=== PATIENT | female | born 1965 | race Caucasian/White ===

== ENCOUNTER 2020-05-11 17:09 | Emergency (ER) | payer MEDICARE ==
[~2020-05-11] VITALS: Ht 160 cm; Wt 104.5 kg
[2020-05-11 17:40] LABS: EOS # 0.2 (0.04-0.40); EOS % 1.6 % (1.0-5.0); HEMOGLOBIN 12.8 g/dL (12.5-16.0); LYMPH# 3.3 (1.50-4.00); MEAN CELL VOLUME 87 fl (78-100); MEAN CORPUSCULAR HEMOGLOBIN 29 pg (27-31); MEAN CORPUSCULAR HGB CONC 34 g/dL (33-37); MEAN PLATELET VOLUME 10.1 fl (7.4-10.4); MONO # 0.6 (0.20-0.80); NEU # 7.1 (1.40-6.50); PLATELET COUNT 268 K/mm3 (130-400); RED BLOOD COUNT 4.38 M/mm3 (4.10-5.30); RED CELL DISTRIBUTION WIDTH 13.3 % (11.5-14.5); WHITE BLOOD COUNT 11.1 K/mm3 (4.8-10.8)
[2020-05-11 17:49] LABS: ALBUMIN 3.8 g/dL (3.5-5.0); SODIUM 138 mmol/L (136-145)
[2020-05-11 17:50] LABS: CALCIUM 9.1 mg/dL (8.3-10.5)
[2020-05-11 17:51] LABS: GLUCOSE 204 mg/dL (65-105); POTASSIUM 2.6 mmol/L (3.5-5.1); TOTAL PROTEIN 6.5 g/dL (6.4-8.3)
[2020-05-11 17:52] LABS: CARBON DIOXIDE 18 mmol/L (22-29); D-DIMER 0.11 mg/L FEU (0.15-0.50)
[2020-05-11 17:53] LABS: TOTAL BILIRUBIN 0.4 mg/dL (0.2-1.2)
[2020-05-11 17:57] LABS: AST-SGOT 11 U/L (5-34)
[2020-05-11 17:58] LABS: ALT/SGPT 10 U/L (0-55)
[2020-05-11 18:04] LABS: TROPONIN-I < 0.03 ng/mL (<0.030)
[2020-05-11] MEDS ORDERED: POTASSIUM CHLO20 ME4 PO (18:24)
[2020-05-11 18:36] VITALS: BP 136/64
== END 2020-05-11 18:36 | disposition left against medical advice (07) ==
LOC: ED 17:09
PROVIDERS: Family Medicine
DX: R07.89 Other chest pain (principal); E87.6 Hypokalemia; E11.9 Type 2 diabetes mellitus without complications; K21.9 Gastro-esophageal reflux disease without esophagitis; I10 Essential (primary) hypertension; F17.210 Nicotine dependence, cigarettes, uncomplicated

== ENCOUNTER → 2020-05-18 | Outpatient (CLI) | payer MEDICARE ==
[2020-05-11 18:36] VITALS: BP 136/64
[~2020-05-18] MED LIST: POTASSIUM CHLO20 ME4 PO
[2020-05-18 15:33] LABS: POTASSIUM 4.2 mmol/L (3.5-5.1)
[2020-05-18 15:35] LABS: CALCIUM 9.5 mg/dL (8.3-10.5)
== END ==
LOC: LAB 15:11
PROVIDERS: Family Medicine
DX: E87.6 Hypokalemia (principal)

== ENCOUNTER → 2020-09-18 | Outpatient (CLI) | payer MEDICAID ==
[2020-09-18 13:22] LABS: EOS # 0.2 (0.04-0.40); EOS % 1.8 % (1.0-5.0); HEMATOCRIT 39.1 % (37.0-47.0); LYMPH# 2.9 (1.50-4.00); MEAN CELL VOLUME 90 fl (78-100); MEAN CORPUSCULAR HEMOGLOBIN 30 pg (27-31); MEAN CORPUSCULAR HGB CONC 33 g/dL (33-37); MEAN PLATELET VOLUME 9.9 fl (7.4-10.4); MONO # 0.6 (0.20-0.80); NEU # 5.8 (1.40-6.50); PLATELET COUNT 304 K/mm3 (130-400); RED BLOOD COUNT 4.36 M/mm3 (4.10-5.30); RED CELL DISTRIBUTION WIDTH 12.9 % (11.5-14.5); WHITE BLOOD COUNT 9.5 K/mm3 (4.8-10.8)
[2020-09-18 13:30] LABS: POTASSIUM 3.3 mmol/L (3.5-5.1)
[2020-09-18 13:31] LABS: CALCIUM 9.4 mg/dL (8.3-10.5)
[2020-09-18 13:33] LABS: TOTAL PROTEIN 6.8 g/dL (6.4-8.3)
[2020-09-18 13:35] LABS: TOTAL BILIRUBIN 0.3 mg/dL (0.2-1.2)
== END ==
LOC: LAB 10:45
PROVIDERS: Physician Assistant
DX: Z00.00 Encounter for general adult medical examination without abnormal findings (principal); Z13.29 Encounter for screening for other suspected endocrine disorder; E11.9 Type 2 diabetes mellitus without complications; R10.9 Unspecified abdominal pain

== ENCOUNTER 2020-12-31 10:38 | Emergency (ER) | payer MEDICARE, MEDICAID ==
[2020-12-31 11:10] LABS: EOS # 0.2 (0.04-0.40); EOS % 2.1 % (1.0-5.0); HEMATOCRIT 40.5 % (37.0-47.0); HEMOGLOBIN 13.1 g/dL (12.5-16.0); LYMPH# 2.5 (1.50-4.00); MEAN CELL VOLUME 90 fl (78-100); MEAN CORPUSCULAR HEMOGLOBIN 29 pg (27-31); MEAN CORPUSCULAR HGB CONC 32 g/dL (33-37); MEAN PLATELET VOLUME 10.1 fl (7.4-10.4); MONO # 0.6 (0.20-0.80); NEU # 5.1 (1.40-6.50); PLATELET COUNT 304 K/mm3 (130-400); RED CELL DISTRIBUTION WIDTH 12.8 % (11.5-14.5); WHITE BLOOD COUNT 8.4 K/mm3 (4.8-10.8)
[2020-12-31] MEDS ORDERED: ZESTRIL5 M1 PO (11:20)
[2020-12-31] MEDS ORDERED: OMEPRAZOLE40 MG PO (11:20)
[2020-12-31] MEDS ORDERED: EMGALITY120 MG/1 M SQ (11:21)
[2020-12-31] MEDS ORDERED: INVEGA SUSTENN156 MG IM (11:21)
[2020-12-31 11:22] LABS: ALBUMIN 4.1 g/dL (3.5-5.0)
[2020-12-31] MEDS ORDERED: LAMOTRIGINE200 MG PO (11:22)
[2020-12-31] MEDS ORDERED: LORAZEPAM1 M1 PO (11:22)
[2020-12-31] MEDS ORDERED: ZOLPIDEM TART10 MG PO (11:22)
[2020-12-31 11:23] LABS: POTASSIUM 3.9 mmol/L (3.5-5.1)
[2020-12-31] MEDS ORDERED: TRAMADOL 50 MG TAB PO (11:23)
[2020-12-31] MEDS ORDERED: DESYREL 100MG100 MG PO (11:23)
[2020-12-31 11:24] LABS: CALCIUM 9.2 mg/dL (8.3-10.5)
[2020-12-31 11:27] LABS: TOTAL BILIRUBIN 0.5 mg/dL (0.2-1.2)
[2020-12-31 11:31] LABS: PH-URINE 6.5 (5.0 - 8.0); URINE APPEARANCE CLEAR; URINE BILIRUBIN NEGATIVE (NEGATIVE); URINE BLOOD TRACE (NEGATIVE); URINE COLOR YELLOW; URINE GLUCOSE NEGATIVE (NEGATIVE); URINE KETONE NEGATIVE (NEGATIVE); URINE LEUKOCYTE ESTERASE NEGATIVE (NEGATIVE); URINE NITRATE NEGATIVE (NEGATIVE); URINE PROTEIN(semi-quant) NEGATIVE (NEGATIVE); URINE UROBILINOGEN NORMAL (NORMAL)
[2020-12-31] MEDS ORDERED: CYCLOBENZAPRINE10 M1 PO (12:50)
[2020-12-31 13:06] VITALS: BP 132/72
== END 2020-12-31 13:09 | disposition home or self-care (01) ==
LOC: ED 10:38
PROVIDERS: Nurse Practitioner
DX: R10.9 Unspecified abdominal pain (principal); F31.9 Bipolar disorder, unspecified; F43.10 Post-traumatic stress disorder, unspecified; F17.200 Nicotine dependence, unspecified, uncomplicated; Z84.1 Family history of disorders of kidney and ureter; Z88.6 Allergy status to analgesic agent; Z88.8 Allergy status to other drugs, medicaments and biological substances
CPT/HCPCS: J1885; J3010; J7030

== ENCOUNTER → 2021-01-08 | Outpatient (CLI) | payer MEDICARE, MEDICAID ==
[2020-12-31 13:06] VITALS: BP 132/72
[~2021-01-08] MED LIST changes: +CYCLOBENZAPRINE10 M1 PO; +DESYREL 100MG100 MG PO; +EMGALITY120 MG/1 M SQ; +INVEGA SUSTENN156 MG IM; +INVEGA TRI546 MG/1.7 IM; +LAMOTRIGINE200 MG PO; +LISINOPRIL10 MG PO; +LORAZEPAM1 M1 PO; +OMEPRAZOLE40 MG PO; +POTASSIUM CHLO10 ME6 PO; +PROAIR HFA0.09 MG/AC IH; +TRAMADOL 50 MG TAB PO; +WELLBUTRIN SR100 M3 PO; +ZESTRIL5 M1 PO; +ZOLPIDEM TART10 MG PO
[2021-01-08 17:00] LABS: URINE APPEARANCE CLEAR; URINE BILIRUBIN NEGATIVE (NEGATIVE); URINE BLOOD 50 ery/uL (NEGATIVE); URINE COLOR YELLOW; URINE GLUCOSE NEGATIVE (NEGATIVE); URINE KETONE NEGATIVE (NEGATIVE); URINE LEUKOCYTE ESTERASE TRACE (NEGATIVE); URINE NITRATE NEGATIVE (NEGATIVE); URINE PROTEIN(semi-quant) NEGATIVE (NEGATIVE); URINE UROBILINOGEN NORMAL (NORMAL)
== END ==
LOC: LAB 15:58
PROVIDERS: Physician Assistant
DX: R10.9 Unspecified abdominal pain (principal)

== ENCOUNTER → 2021-02-21 | Outpatient (CLI) | payer MEDICARE, MEDICAID | LOC: RAD 16:08 | DX: M51.26 Other intervertebral disc displacement, lumbar region (principal) ==

== ENCOUNTER 2021-02-28 13:55 | Outpatient (RCR) | payer MEDICARE, MEDICAID ==
[~2021-02-28 13:55] MED LIST changes: -INVEGA TRI546 MG/1.7 IM; -LISINOPRIL10 MG PO; -POTASSIUM CHLO10 ME6 PO; -PROAIR HFA0.09 MG/AC IH; -WELLBUTRIN SR100 M3 PO
[2021-05-19] MEDS ORDERED: WELLBUTRIN SR100 M3 PO (14:34)
[2021-05-19] MEDS ORDERED: LISINOPRIL10 MG PO (14:35)
== END 2021-05-29 ==
LOC: PT
DX: M54.16 Radiculopathy, lumbar region (principal)

== ENCOUNTER 2021-05-19 14:24 | Emergency (ER) | payer MEDICARE, MEDICAID ==
[2021-05-19] MEDS ORDERED: WELLBUTRIN SR100 M3 PO (14:34)
[2021-05-19] MEDS ORDERED: LISINOPRIL10 MG PO (14:35)
[2021-05-19 15:34] VITALS: BP 148/93
== END 2021-05-19 15:32 | disposition home or self-care (01) ==
LOC: ED 14:24
DX: G43.909 Migraine, unspecified, not intractable, without status migrainosus (principal); Z88.6 Allergy status to analgesic agent
CPT/HCPCS: J1885

== ENCOUNTER 2021-06-09 14:54 | Emergency (ER) | payer MEDICARE, MEDICAID ==
[~2021-06-09] VITALS: Ht 162.6 cm; Wt 110.2 kg
[~2021-06-09 14:54] MED LIST changes: +LISINOPRIL10 MG PO; +WELLBUTRIN SR100 M3 PO
[2021-06-09] MEDS ORDERED: INVEGA TRI546 MG/1.7 IM (15:19)
[2021-06-09 15:52] LABS: URINE APPEARANCE CLEAR; URINE COLOR YELLOW; URINE PROTEIN(semi-quant) TRACE mg/dL (NEGATIVE)
[2021-06-09 15:53] LABS: URINE BILIRUBIN NEGATIVE (NEGATIVE); URINE BLOOD NEGATIVE (NEGATIVE); URINE KETONE NEGATIVE (NEGATIVE); URINE LEUKOCYTE ESTERASE NEGATIVE (NEGATIVE); URINE NITRATE NEGATIVE (NEGATIVE); URINE UROBILINOGEN NORMAL (NORMAL)
[2021-06-09 15:55] LABS: HEMATOCRIT 38.8 % (37.0-47.0); HEMOGLOBIN 12.8 g/dL (12.5-16.0); MEAN CELL VOLUME 89 fl (78-100); MEAN CORPUSCULAR HEMOGLOBIN 29 pg (27-31); MEAN CORPUSCULAR HGB CONC 33 g/dL (33-37); MEAN PLATELET VOLUME 9.7 fl (7.4-10.4); PLATELET COUNT 297 K/mm3 (130-400); RED BLOOD COUNT 4.41 M/mm3 (4.10-5.30); RED CELL DISTRIBUTION WIDTH 12.7 % (11.5-14.5); WHITE BLOOD COUNT 11.5 K/mm3 (4.8-10.8)
[2021-06-09 15:56] LABS: BASO # 0.02 (0.02-0.10); EOS # 0.18 (0.04-0.40); EOS % 1.6 % (1.0-5.0); LYMPH# 2.46 (1.50-4.00); MONO # 0.69 (0.20-0.80); NEU # 8.16 (1.40-6.50)
[2021-06-09 16:01] LABS: CALCIUM 10.3 mg/dL (8.3-10.5); CARBON DIOXIDE 23 mmol/L (22-29); GLUCOSE 230 mg/dL (65-105); POTASSIUM 3.4 mmol/L (3.5-5.1); SODIUM 137 mmol/L (136-145)
[2021-06-09 16:26] LABS: TROPONIN-I < 0.03 ng/mL (<0.030)
[2021-06-09] MEDS ORDERED: PROAIR HFA0.09 MG/AC IH (17:16)
[2021-06-09] MEDS ORDERED: POTASSIUM CHLO10 ME6 PO (17:16)
[2021-06-09 17:30] VITALS: BP 137/75
== END 2021-06-09 17:30 | disposition home or self-care (01) ==
LOC: ED 14:54
PROVIDERS: Family Medicine
DX: R05 Cough (principal); E87.6 Hypokalemia; R53.81 Other malaise; R53.83 Other fatigue; G43.909 Migraine, unspecified, not intractable, without status migrainosus; I10 Essential (primary) hypertension; F31.9 Bipolar disorder, unspecified; F17.200 Nicotine dependence, unspecified, uncomplicated; Z88.6 Allergy status to analgesic agent; Z79.899 Other long term (current) drug therapy; Z20.822 Contact with and (suspected) exposure to COVID-19

== ENCOUNTER → 2021-06-13 | Outpatient (CLI) | payer MEDICARE, MEDICAID ==
[~2021-06-13] MED LIST changes: +INVEGA TRI546 MG/1.7 IM; +POTASSIUM CHLO10 ME6 PO; +PROAIR HFA0.09 MG/AC IH
[2021-06-13 10:20] LABS: ALBUMIN 3.9 g/dL (3.5-5.0)
[2021-06-13 10:21] LABS: POTASSIUM 4.2 mmol/L (3.5-5.1)
[2021-06-13 10:22] LABS: CALCIUM 9.5 mg/dL (8.3-10.5)
[2021-06-13 10:25] LABS: TOTAL BILIRUBIN 0.3 mg/dL (0.2-1.2)
== END ==
LOC: LAB 09:53
PROVIDERS: Physician Assistant
DX: R73.9 Hyperglycemia, unspecified (principal); E87.6 Hypokalemia

== ENCOUNTER → 2021-09-16 | Outpatient (CLI) | payer MEDICARE, MEDICAID | LOC: LAB 14:47 | DX: Z20.822 Contact with and (suspected) exposure to COVID-19 (principal) ==

== ENCOUNTER → 2021-10-11 | Outpatient (CLI) | payer MEDICARE, MEDICAID ==
[2021-10-11 22:29] LABS: HOMOCYSTEINE SERUM OR PLASMA 13.9 umol/L (4.0-14.0)
[2021-10-14 12:37] LABS: LUPUS ANTICOAGULANT INR 1.1 (0.7-1.3); LUPUS ANTICOAGULANT PTT 36.5 Seconds (())
[2021-10-14 12:55] LABS: LUPUS ANTICOAGULANT INTERP 40.9 Seconds (())
[2021-10-15 02:35] LABS: BETA-2GPI IGG AABS <20.0 CU (<=20.0); BETA-2GPI IGM AABS <20.0 CU (<=20.0)
[2021-10-15 07:41] LABS: LUPUS ANTICOAGULANT DRVVT 1.35 ratio (())
== END ==
LOC: LAB 07:49
PROVIDERS: Psychiatry & Neurology Neurology
DX: G43.419 Hemiplegic migraine, intractable, without status migrainosus (principal); G43.109 Migraine with aura, not intractable, without status migrainosus

== ENCOUNTER → 2022-04-03 | Outpatient (CLI) | payer MEDICARE, MEDICAID | LOC: LAB 12:45 | DX: Z20.822 Contact with and (suspected) exposure to COVID-19 (principal) ==

== ENCOUNTER 2022-07-09 12:59 | Outpatient (RCR) | payer MEDICARE, MEDICAID | END 2022-07-28 | disposition still patient (30) | LOC: PT | DX: M53.3 Sacrococcygeal disorders, not elsewhere classified (principal) ==

== ENCOUNTER 2022-12-09 11:22 | Emergency (ER) | payer MEDICARE, MEDICAID ==
[~2022-12-09 11:22] MED LIST changes: +AMOXICILLIN AND1 TA2 PO; +PHENERGAN 25 TA25 MG PO; +PREDNISONE20 M1 PO
[2022-12-09] MEDS ORDERED: PROPRANOLOL HCL80 M4 PO (11:39)
[2022-12-09] MEDS ORDERED: PANTOPRAZOLE SO40 MG PO (11:42)
[2022-12-09] MEDS ORDERED: NORFLEX 10100 MG/TAB PO (11:43)
[2022-12-09 12:06] LABS: BASO # 0.02 K/mm3 (0.02-0.10); EOS # 0.03 K/mm3 (0.04-0.40); EOS % 0.5 % (1.0-5.0); HEMATOCRIT 40.2 % (37.0-47.0); HEMOGLOBIN 13.4 g/dL (12.5-16.0); LYMPH# 1.11 K/mm3 (1.50-4.00); MEAN CELL VOLUME 90 fl (78-100); MEAN CORPUSCULAR HEMOGLOBIN 30 pg (27-31); MEAN CORPUSCULAR HGB CONC 33 g/dL (33-37); MEAN PLATELET VOLUME 9.7 fl (7.4-10.4); MONO # 0.75 K/mm3 (0.20-0.80); NEU # 3.66 K/mm3 (1.40-6.50); PLATELET COUNT 247 K/mm3 (130-400); RED BLOOD COUNT 4.48 M/mm3 (4.10-5.30); RED CELL DISTRIBUTION WIDTH 12.2 % (11.5-14.5); WHITE BLOOD COUNT 5.6 K/mm3 (4.8-10.8)
[2022-12-09 12:18] LABS: POTASSIUM 3.8 mmol/L (3.5-5.1); SODIUM 137 mmol/L (136-145)
[2022-12-09 12:19] LABS: ALBUMIN 4.2 g/dL (3.5-5.0)
[2022-12-09 12:21] LABS: GLUCOSE 128 mg/dL (65-105)
[2022-12-09 12:22] LABS: CARBON DIOXIDE 22 mmol/L (22-29)
[2022-12-09 12:26] LABS: AST-SGOT 13 U/L (5-34)
[2022-12-09 12:28] LABS: ALT/SGPT 18 U/L (0-55)
[2022-12-09 12:36] LABS: TROPONIN-I < 0.030 ng/mL (<0.030)
[2022-12-09 12:51] LABS: URINE APPEARANCE CLEAR; URINE BILIRUBIN NEGATIVE (NEGATIVE); URINE BLOOD 50 ery/uL (NEGATIVE); URINE COLOR YELLOW; URINE GLUCOSE NEGATIVE (NEGATIVE); URINE KETONE NEGATIVE (NEGATIVE); URINE LEUKOCYTE ESTERASE 1+ (NEGATIVE); URINE MUCUS PRESENT (NOT PRESENT); URINE NITRATE NEGATIVE (NEGATIVE); URINE PROTEIN(semi-quant) TRACE (NEGATIVE); URINE UROBILINOGEN NORMAL (NORMAL)
[2022-12-09 13:05] LABS: TOTAL BILIRUBIN 0.4 mg/dL (0.2-1.2)
[2022-12-09 13:24] LABS: D-DIMER 0.03 mg/L FEU (0.15-0.50)
[2022-12-09] MEDS ORDERED: MORGIDOX 1X100100 MG PO (13:30)
[2022-12-09] MEDS ORDERED: TAMIFLU 75MG75 MG PO (13:31)
[2022-12-09 13:40] VITALS: BP 134/77
== END 2022-12-09 13:40 | disposition home or self-care (01) ==
LOC: ED 11:22
PROVIDERS: Physician Assistant
DX: J10.1 Influenza due to other identified influenza virus with other respiratory manifestations (principal); J18.9 Pneumonia, unspecified organism; I10 Essential (primary) hypertension; F17.210 Nicotine dependence, cigarettes, uncomplicated; Z79.899 Other long term (current) drug therapy; Z20.822 Contact with and (suspected) exposure to COVID-19; Z28.310 Unvaccinated for COVID-19

== ENCOUNTER → 2023-10-13 | Outpatient (CLI) | payer MEDICARE, MEDICAID ==
[~2023-10-13] MED LIST changes: +EMGALITY120 MG/1 M; +GOOD SENSE ASPI81 M1 PO; +MORGIDOX 1X100100 MG PO; +NORFLEX 10100 MG/TAB PO; +PANTOPRAZOLE SO40 MG PO; +PROPRANOLOL HCL80 M4 PO; +TAMIFLU 75MG75 MG PO
[2023-10-13 15:10] LABS: BASO # 0.04 K/mm3 (0.02-0.10); EOS # 0.07 K/mm3 (0.04-0.40); EOS % 0.7 % (1.0-5.0); HEMOGLOBIN 14.5 g/dL (12.5-16.0); LYMPH# 2.14 K/mm3 (1.50-4.00); MEAN CELL VOLUME 91 fl (78-100); MEAN CORPUSCULAR HEMOGLOBIN 30 pg (27-31); MEAN CORPUSCULAR HGB CONC 33 g/dL (33-37); MEAN PLATELET VOLUME 9.9 fl (7.4-10.4); MONO # 0.72 K/mm3 (0.20-0.80); NEU # 7.29 K/mm3 (1.40-6.50); PLATELET COUNT 282 K/mm3 (130-400); RED BLOOD COUNT 4.86 M/mm3 (4.10-5.30); RED CELL DISTRIBUTION WIDTH 12.4 % (11.5-14.5); WHITE BLOOD COUNT 10.3 K/mm3 (4.8-10.8)
[2023-10-13 15:20] LABS: ALBUMIN 4.7 g/dL (3.5-5.0)
[2023-10-13 15:21] LABS: CALCIUM 10.5 mg/dL (8.3-10.5)
[2023-10-13 15:22] LABS: TOTAL PROTEIN 7.7 g/dL (6.4-8.3)
[2023-10-13 15:24] LABS: TOTAL BILIRUBIN 0.4 mg/dL (0.2-1.2)
== END ==
LOC: LAB 14:51
PROVIDERS: Physician Assistant
DX: R42 Dizziness and giddiness (principal); E78.5 Hyperlipidemia, unspecified; E11.9 Type 2 diabetes mellitus without complications

== ENCOUNTER 2023-11-24 01:14 | Emergency (ER) | payer MEDICARE, MEDICAID ==
[~2023-11-24] VITALS: Ht 162.6 cm; Wt 97.8 kg
[2023-11-24] MEDS ORDERED: Ondansetron 4 MG/2 ML VIAL IV ONE (02:00)
[2023-11-24] MEDS ORDERED: Morphine 4 MG/ML VIAL IV ONE (02:00)
[2023-11-24] MEDS ORDERED: fentaNYL 100 MCG/2 ML VIAL IV PRN (02:00)
[2023-11-24 02:09] LABS: BASO # 0.04 K/mm3 (0.02-0.10); EOS # 0.37 K/mm3 (0.04-0.40); EOS % 3.4 % (1.0-5.0); HEMATOCRIT 41.7 % (37.0-47.0); HEMOGLOBIN 13.8 g/dL (12.5-16.0); LYMPH# 2.68 K/mm3 (1.50-4.00); MEAN CELL VOLUME 91 fl (78-100); MEAN CORPUSCULAR HEMOGLOBIN 30 pg (27-31); MEAN CORPUSCULAR HGB CONC 33 g/dL (33-37); MEAN PLATELET VOLUME 10.2 fl (7.4-10.4); MONO # 0.84 K/mm3 (0.20-0.80); PLATELET COUNT 269 K/mm3 (130-400); RED BLOOD COUNT 4.59 M/mm3 (4.10-5.30); RED CELL DISTRIBUTION WIDTH 12.9 % (11.5-14.5); WHITE BLOOD COUNT 10.8 K/mm3 (4.8-10.8)
[2023-11-24 02:12] LABS: ALBUMIN 4.1 g/dL (3.5-5.0); SODIUM 142 mmol/L (136-145)
[2023-11-24 02:14] LABS: CALCIUM 9.8 mg/dL (8.3-10.5)
[2023-11-24] MEDS ORDERED: NS 1,000 ML IV SCH (02:15)
[2023-11-24 02:17] LABS: CARBON DIOXIDE 23 mmol/L (22-29); GLUCOSE 134 mg/dL (65-105); TOTAL BILIRUBIN 0.8 mg/dL (0.2-1.2)
[2023-11-24 02:18] LABS: TOTAL PROTEIN 6.9 g/dL (6.4-8.3)
[2023-11-24 02:20] LABS: AST-SGOT 127 U/L (5-34)
[2023-11-24 02:22] LABS: LIPASE 25 U/L (8-78)
[2023-11-24 02:31] LABS: ALT/SGPT 130 U/L (0-55); TROPONIN-I < 0.030 ng/mL (0.00-0.033)
[2023-11-24] MEDS ORDERED: Iohexol 350 - 100 ML VIAL IV ONE (02:43)
[2023-11-24 03:26] LABS: URINE APPEARANCE CLEAR (CLEAR); URINE BILIRUBIN NEGATIVE (NEGATIVE); URINE BLOOD TRACE-INTACT (NEGATIVE); URINE COLOR YELLOW (YELLOW); URINE GLUCOSE NEGATIVE (NEGATIVE); URINE KETONE NEGATIVE (NEGATIVE); URINE LEUKOCYTE ESTERASE 1+ (NEGATIVE); URINE NITRATE NEGATIVE (NEGATIVE); URINE PROTEIN(semi-quant) NEGATIVE (NEGATIVE)
[2023-11-24 04:18] VITALS: BP 113/78
== END 2023-11-24 04:00 | disposition home or self-care (01) ==
LOC: ED 01:14
PROVIDERS: Physician Assistant
DX: R10.13 Epigastric pain (principal); R74.01 Elevation of levels of liver transaminase levels; F17.210 Nicotine dependence, cigarettes, uncomplicated; Z87.11 Personal history of peptic ulcer disease
CPT/HCPCS: J2270; J2405; J3010; J7030; Q9967

== ENCOUNTER → 2023-12-01 | Outpatient (CLI) | payer MEDICARE, MEDICAID ==
[2023-12-01 09:54] LABS: BASO # 0.02 K/mm3 (0.02-0.10); EOS % 2.7 % (1.0-5.0); HEMOGLOBIN 13.5 g/dL (12.5-16.0); LYMPH# 2.01 K/mm3 (1.50-4.00); MEAN CELL VOLUME 91 fl (78-100); MEAN CORPUSCULAR HEMOGLOBIN 30 pg (27-31); MEAN CORPUSCULAR HGB CONC 33 g/dL (33-37); MEAN PLATELET VOLUME 9.7 fl (7.4-10.4); MONO # 0.46 K/mm3 (0.20-0.80); NEU # 4.71 K/mm3 (1.40-6.50); PLATELET COUNT 371 K/mm3 (130-400); RED BLOOD COUNT 4.52 M/mm3 (4.10-5.30); RED CELL DISTRIBUTION WIDTH 12.8 % (11.5-14.5); WHITE BLOOD COUNT 7.5 K/mm3 (4.8-10.8)
[2023-12-01 10:00] LABS: CALCIUM 9.8 mg/dL (8.3-10.5)
[2023-12-01 10:01] LABS: TOTAL PROTEIN 7.2 g/dL (6.4-8.3)
[2023-12-01 10:03] LABS: TOTAL BILIRUBIN 0.8 mg/dL (0.2-1.2)
== END ==
LOC: LAB 09:35
PROVIDERS: Physician Assistant
DX: R10.9 Unspecified abdominal pain (principal)

== ENCOUNTER 2023-12-09 16:47 | Emergency (ER) | payer MEDICARE, MEDICAID ==
[~2023-12-09] VITALS: Ht 162.6 cm; Wt 95.0 kg
[2023-12-09] MEDS ORDERED: NS 1,000 ML IV ONE (17:15)
[2023-12-09] MEDS ORDERED: Morphine 4 MG/ML VIAL IV PRN (17:15)
[2023-12-09 17:18] LABS: BASO # 0.03 K/mm3 (0.02-0.10); EOS # 0.08 K/mm3 (0.04-0.40); EOS % 0.9 % (1.0-5.0); HEMATOCRIT 39.5 % (37.0-47.0); HEMOGLOBIN 12.8 g/dL (12.5-16.0); LYMPH# 1.74 K/mm3 (1.50-4.00); MEAN CELL VOLUME 91 fl (78-100); MEAN CORPUSCULAR HEMOGLOBIN 30 pg (27-31); MEAN CORPUSCULAR HGB CONC 32 g/dL (33-37); MEAN PLATELET VOLUME 9.9 fl (7.4-10.4); MONO # 0.56 K/mm3 (0.20-0.80); NEU # 6.09 K/mm3 (1.40-6.50); PLATELET COUNT 384 K/mm3 (130-400); RED BLOOD COUNT 4.33 M/mm3 (4.10-5.30); RED CELL DISTRIBUTION WIDTH 13.2 % (11.5-14.5); WHITE BLOOD COUNT 8.5 K/mm3 (4.8-10.8)
[2023-12-09 17:22] LABS: ALBUMIN 3.8 g/dL (3.5-5.0)
[2023-12-09 17:23] LABS: CALCIUM 9.4 mg/dL (8.3-10.5)
[2023-12-09 17:24] LABS: TOTAL PROTEIN 6.9 g/dL (6.4-8.3)
[2023-12-09 17:26] LABS: TOTAL BILIRUBIN 2.3 mg/dL (0.2-1.2)
[2023-12-09] MEDS ORDERED: Ondansetron 4 MG/2 ML VIAL IV ONE (17:30)
[2023-12-09] MEDS ORDERED: Iohexol 300 - 100 ML VIAL IV ONE (17:40)
[2023-12-09 18:00] LABS: URINE APPEARANCE CLEAR (CLEAR); URINE BILIRUBIN 1+ (NEGATIVE); URINE COLOR YELLOW (YELLOW); URINE GLUCOSE NEGATIVE (NEGATIVE); URINE KETONE NEGATIVE (NEGATIVE); URINE NITRATE NEGATIVE (NEGATIVE); URINE PROTEIN(semi-quant) NEGATIVE (NEGATIVE)
[2023-12-09 18:01] LABS: URINE BLOOD TRACE-INTACT (NEGATIVE); URINE LEUKOCYTE ESTERASE NEGATIVE (NEGATIVE)
[2023-12-09 18:49] VITALS: BP 140/85
== END 2023-12-09 18:51 | disposition home or self-care (01) ==
LOC: ED 16:47
PROVIDERS: Family Medicine
DX: R10.11 Right upper quadrant pain (principal); R11.2 Nausea with vomiting, unspecified; D72.829 Elevated white blood cell count, unspecified; F17.210 Nicotine dependence, cigarettes, uncomplicated; Z87.19 Personal history of other diseases of the digestive system; Z90.49 Acquired absence of other specified parts of digestive tract; Z88.5 Allergy status to narcotic agent
CPT/HCPCS: J2270; J2405; J7030; Q9967

== ENCOUNTER 2023-12-09 23:05 | Emergency (ER) | payer MEDICARE, MEDICAID ==
[2023-12-09] MEDS ORDERED: Ketorolac 30 MG/ML VIAL IM ONE (23:45)
[2023-12-10 00:58] VITALS: BP 142/76
== END 2023-12-10 00:58 | disposition home or self-care (01) ==
LOC: ED 23:05
DX: R10.11 Right upper quadrant pain (principal); R11.2 Nausea with vomiting, unspecified; F17.200 Nicotine dependence, unspecified, uncomplicated; Z88.8 Allergy status to other drugs, medicaments and biological substances
CPT/HCPCS: J1885

== ENCOUNTER → 2023-12-10 | Outpatient (CLI) | payer MEDICARE, MEDICAID | LOC: RAD 18:31 | DX: R10.11 Right upper quadrant pain (principal) ==

== ENCOUNTER 2024-01-06 03:37 | Emergency (ER) | payer MEDICARE, MEDICAID ==
[~2024-01-06 03:37] MED LIST changes: +LOSARTAN POTASS25 MG PO
[2024-01-06 04:25] LABS: BASO # 0.02 K/mm3 (0.02-0.10); EOS # 0.28 K/mm3 (0.04-0.40); EOS % 3.2 % (1.0-5.0); HEMATOCRIT 38.9 % (37.0-47.0); HEMOGLOBIN 12.8 g/dL (12.5-16.0); LYMPH# 1.99 K/mm3 (1.50-4.00); MEAN CELL VOLUME 91 fl (78-100); MEAN CORPUSCULAR HEMOGLOBIN 30 pg (27-31); MEAN CORPUSCULAR HGB CONC 33 g/dL (33-37); MEAN PLATELET VOLUME 10.1 fl (7.4-10.4); MONO # 0.66 K/mm3 (0.20-0.80); NEU # 5.78 K/mm3 (1.40-6.50); PLATELET COUNT 235 K/mm3 (130-400); RED BLOOD COUNT 4.27 M/mm3 (4.10-5.30); RED CELL DISTRIBUTION WIDTH 12.8 % (11.5-14.5); WHITE BLOOD COUNT 8.8 K/mm3 (4.8-10.8)
[2024-01-06 04:31] LABS: ALBUMIN 3.9 g/dL (3.5-5.0)
[2024-01-06 04:32] LABS: CALCIUM 9.3 mg/dL (8.3-10.5)
[2024-01-06 04:33] LABS: TOTAL PROTEIN 6.1 g/dL (6.4-8.3)
[2024-01-06 04:35] LABS: TOTAL BILIRUBIN 0.9 mg/dL (0.2-1.2)
[2024-01-06] MEDS ORDERED: Morphine 10 MG/ML VIAL IM ONE (04:45)
[2024-01-06 05:08] VITALS: BP 145/86
== END 2024-01-06 05:08 | disposition home or self-care (01) ==
LOC: ED 03:37
PROVIDERS: Physician Assistant
DX: R10.11 Right upper quadrant pain (principal); R11.0 Nausea; R74.01 Elevation of levels of liver transaminase levels; G89.29 Other chronic pain; Z90.49 Acquired absence of other specified parts of digestive tract
CPT/HCPCS: J2270; J2765

== ENCOUNTER 2024-01-07 01:28 | Emergency (ER) | payer MEDICARE, MEDICAID ==
[2024-01-07 02:17] LABS: BASO # 0.02 K/mm3 (0.02-0.10); EOS # 0.19 K/mm3 (0.04-0.40); EOS % 2.5 % (1.0-5.0); HEMATOCRIT 38.9 % (37.0-47.0); HEMOGLOBIN 13.1 g/dL (12.5-16.0); LYMPH# 1.35 K/mm3 (1.50-4.00); MEAN CELL VOLUME 90 fl (78-100); MEAN CORPUSCULAR HEMOGLOBIN 30 pg (27-31); MEAN CORPUSCULAR HGB CONC 34 g/dL (33-37); MEAN PLATELET VOLUME 10.5 fl (7.4-10.4); MONO # 0.62 K/mm3 (0.20-0.80); NEU # 5.41 K/mm3 (1.40-6.50); PLATELET COUNT 236 K/mm3 (130-400); RED BLOOD COUNT 4.33 M/mm3 (4.10-5.30); RED CELL DISTRIBUTION WIDTH 12.6 % (11.5-14.5); WHITE BLOOD COUNT 7.6 K/mm3 (4.8-10.8)
[2024-01-07 02:23] LABS: ALBUMIN 3.9 g/dL (3.5-5.0)
[2024-01-07 02:25] LABS: CALCIUM 9.4 mg/dL (8.3-10.5)
[2024-01-07 02:26] LABS: TOTAL PROTEIN 6.2 g/dL (6.4-8.3)
[2024-01-07 02:28] LABS: TOTAL BILIRUBIN 2.4 mg/dL (0.2-1.2)
[2024-01-07 02:38] LABS: PH-URINE 6.5 (5.0 - 8.0); URINE APPEARANCE CLEAR (CLEAR); URINE COLOR DARK YELLOW (YELLOW); URINE GLUCOSE NEGATIVE (NEGATIVE); URINE PROTEIN(semi-quant) NEGATIVE (NEGATIVE)
[2024-01-07 02:39] LABS: URINE BILIRUBIN 1+ (NEGATIVE); URINE BLOOD TRACE-INTACT (NEGATIVE); URINE KETONE NEGATIVE (NEGATIVE); URINE LEUKOCYTE ESTERASE NEGATIVE (NEGATIVE); URINE NITRATE NEGATIVE (NEGATIVE); URINE WBC 0-1 /hpf (0-3)
[2024-01-07] MEDS ORDERED: Morphine 10 MG/ML VIAL SQ ONE (02:45)
[2024-01-07 02:55] VITALS: BP 136/77
== END 2024-01-07 02:55 | disposition home or self-care (01) ==
LOC: ED 01:28
PROVIDERS: Family Medicine
DX: K83.8 Other specified diseases of biliary tract (principal); R74.01 Elevation of levels of liver transaminase levels; F17.210 Nicotine dependence, cigarettes, uncomplicated; Z87.19 Personal history of other diseases of the digestive system
CPT/HCPCS: J2270

== ENCOUNTER → 2024-01-18 | Day surgery (SDC) | payer MEDICARE, MEDICAID ==
[~2024-01-18] MED LIST changes: +Lidocaine PF 2% (20 MG/ML) 5 ML VIAL ONE
== END ==
LOC: MSO 07:54
DX: K29.50 Unspecified chronic gastritis without bleeding (principal); R13.10 Dysphagia, unspecified; Z79.899 Other long term (current) drug therapy; F17.210 Nicotine dependence, cigarettes, uncomplicated; J45.909 Unspecified asthma, uncomplicated; Z87.11 Personal history of peptic ulcer disease
CPT/HCPCS: 00731; J2704; J7120

== ENCOUNTER 2024-02-22 16:45 | Emergency (ER) | payer MEDICARE, MEDICAID ==
[~2024-02-22 16:45] MED LIST changes: +Home LORazepam 0.5 MG #3 TAB/PACK PO ONE; +LORazepam 2 MG/ML VIAL IM ONE; -Lidocaine PF 2% (20 MG/ML) 5 ML VIAL ONE
== END 2024-02-22 18:46 | disposition home or self-care (01) ==
LOC: ED 16:45
DX: F41.9 Anxiety disorder, unspecified (principal)
CPT/HCPCS: J2060

== ENCOUNTER → 2024-03-10 | Outpatient (CLI) | payer MEDICARE, MEDICAID ==
[~2024-03-10] MED LIST changes: -Home LORazepam 0.5 MG #3 TAB/PACK PO ONE; -LORazepam 2 MG/ML VIAL IM ONE
[2024-03-10 10:48] LABS: ALBUMIN 4.1 g/dL (3.5-5.0)
[2024-03-10 10:51] LABS: TOTAL PROTEIN 6.8 g/dL (6.4-8.3)
[2024-03-10 10:52] LABS: TOTAL BILIRUBIN 0.4 mg/dL (0.2-1.2)
== END ==
LOC: LAB 10:31
PROVIDERS: Student in an Organized Health Care Education/Training Program
DX: R19.7 Diarrhea, unspecified (principal); R11.10 Vomiting, unspecified; R63.4 Abnormal weight loss

== ENCOUNTER → 2024-08-18 | Outpatient (CLI) | payer MEDICARE, MEDICAID ==
[~2024-08-18] MED LIST changes: +AIMOVIG AU70 MG/1 ML SQ
[2024-08-18 11:44] LABS: BASO # 0.03 K/mm3 (0.02-0.10); EOS # 0.27 K/mm3 (0.04-0.40); EOS % 3.1 % (1.0-5.0); HEMATOCRIT 42.2 % (37.0-47.0); LYMPH# 3.08 K/mm3 (1.50-4.00); MEAN CELL VOLUME 92 fl (78-100); MEAN CORPUSCULAR HEMOGLOBIN 30 pg (27-31); MEAN CORPUSCULAR HGB CONC 33 g/dL (33-37); MEAN PLATELET VOLUME 9.9 fl (7.4-10.4); MONO # 0.64 K/mm3 (0.20-0.80); NEU # 4.75 K/mm3 (1.40-6.50); PLATELET COUNT 254 K/mm3 (130-400); RED CELL DISTRIBUTION WIDTH 12.4 % (11.5-14.5); WHITE BLOOD COUNT 8.8 K/mm3 (4.8-10.8)
[2024-08-18 11:59] LABS: ALBUMIN 4.2 g/dL (3.5-5.0)
[2024-08-18 12:00] LABS: CALCIUM 9.9 mg/dL (8.3-10.5)
[2024-08-18 12:01] LABS: TOTAL PROTEIN 6.7 g/dL (6.4-8.3)
[2024-08-18 12:03] LABS: TOTAL BILIRUBIN 0.5 mg/dL (0.2-1.2)
== END ==
LOC: LAB 11:31
PROVIDERS: Physician Assistant
DX: Z13.29 Encounter for screening for other suspected endocrine disorder (principal); K90.9 Intestinal malabsorption, unspecified; E78.5 Hyperlipidemia, unspecified; E11.9 Type 2 diabetes mellitus without complications